=== PATIENT | female | born 1985 | race Caucasian/White ===

== ENCOUNTER 2019-06-30 22:29 | Emergency (ER) | payer OTHER ==
[~2019-06-30] VITALS: Ht 165.1 cm; Wt 113.4 kg
[2019-06-30] MEDS ORDERED: PRAZOSIN HCL1 MG (22:40)
[2019-06-30] MEDS ORDERED: LITHIUM8 MEQ/5 ML (22:40)
[2019-06-30] MEDS ORDERED: HYDROXYZINE HCL10 MG (22:40)
== END 2019-06-30 23:34 | disposition home or self-care (01) ==
LOC: ED 22:29
DX: S93.401A Sprain of unspecified ligament of right ankle, initial encounter (principal); F17.200 Nicotine dependence, unspecified, uncomplicated; W01.0XXA Fall on same level from slipping, tripping and stumbling without subsequent striking against object, initial encounter
CPT/HCPCS: 73610; 73630; 99283